=== PATIENT | male | born 2000 | race Caucasian/White ===

== ENCOUNTER 2024-11-17 19:18 | Emergency (ER) | payer BC, SELFPAY ==
--- NOTE | ~2024-11-17 | XR_ITS ---
XR ankle RT min 3V, XR foot RT min 3V 11/17/2024 19:37 INDICATION: Right ankle pain PROCEDURE: 4 views right ankle and 4 views right foot COMPARISON: No prior studies for comparison. FINDINGS: Fracture, dislocation or subluxation is not identified. The soft tissues appear within normal limits. No foreign bodies are identified. IMPRESSION: 1: NO ACUTE BONE OR JOINT ABNORMALITY IDENTIFIED. Reviewed, dictated and finalized at location O. IMPRESSION: 1: NO ACUTE BONE OR JOINT ABNORMALITY IDENTIFIED.
[2024-11-17 19:31] VITALS: BP 108/68; PULSE 69; RESP 16; TEMP 36.5; O2SAT 100
--- NOTE | 2024-11-17 19:42 | ED.GENADULT ---
HPI - General Adult General Chief complaint: Extremity Injury, Lower Stated complaint: INJURED R ANKLE/FOOT Source: patient Mode of arrival: ambulatory Limitations: no limitations History of Present Illness HPI narrative: Patient presents for evaluation of right foot and ankle pain. He initially injured his right foot 2 weeks ago while in [place]. His great toe got stuck in the sand and he felt a strain in the right foot. He has continued to have pain in the affected area. Last night he foot slipped on a diving board while swimming and he experienced pain in the anterior aspect of the right ankle. He rates his pain 7/10 in severity. He is not taking any medication for symptoms. Pain is worse with weight-bearing and walking. He denies any paresthesias. Related Data Home Medications ?Medication ?Instructions ?Recorded ?Confirmed ?Last Taken ?Type No Home Medications 11/17/24 11/17/24 Unknown History Allergies Allergy/AdvReac Type Severity Reaction Status Date / Time No Known Allergies Allergy Verified 11/17/24 19:29 Review of Systems Review of Systems: CONSTITUTIONAL: Denies fever, chills, or sweats. EYES: Denies visual changes, redness, or discharge. ENT: Denies rhinorrhea, congestion, sore throat, or otalgia. CARDIOVASCULAR: Denies chest pain, palpitations, or edema. RESPIRATORY: Denies cough or dyspnea. GASTROINTESTINAL: Denies abdominal pain, nausea, vomiting, or diarrhea. GENITOURINARY: Denies dysuria or hematuria. SKIN: Denies rash or itching. MUSCULOSKELETAL: reports right foot and ankle pain NEUROLOGIC: Denies headache, numbness, dizziness, or weakness. PSYCHIATRIC: Denies anxiety or depression. 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 HEAD: Normocephalic, atraumatic. EYES: PERRLA and EOMI. ENT: Nares clear, no rhinorrhea or epistaxis. Mucous membranes moist. Oropharynx without tonsillar hypertrophy exudate or other lesions. Bilateral TMs pearly eid nonbulging NECK: Supple. No adenopathy or masses. No carotid bruits or JVD CHEST: Clear to auscultation. No respiratory distress. No wheezes rales or rhonchi HEART: Regular rate and rhythm. No murmur heard. Normal peripheral pulses. ABDOMEN: Soft, nontender, nondistended, normal active bowel sounds. EXTREMITIES: dorsal aspect of the right foot is edematous. He is able to dorsi and plantar flex the right foot but does so with hesitancy secondary to pain. He is able to wiggle all digits of the right foot. There is tenderness just inferior to the lateral aspect of the right ankle SKIN: Warm, dry, no rash. NEURO: No focal deficits. Alert and oriented x3. PSYCH: Normal mood and affect. Course Course Emergency Course: This is a 24-year-old male who presented for evaluation of right ankle pain and right foot pain. X-rays were negative for fracture. Exam consistent with muscle strain and ankle sprain. Provided with William wrap. Advised on RICE therapy. NSAIDs for pain. Recommended he purchase and wear an ankle stirrup splint. Follow-up with primary provider. Go to the ER for worsening symptoms. Patient in agreement with of care. Level of Care: Express Care Visit Vital Signs Vital signs: Vital Signs Temperature 36.5 C 11/17/24 19:31 Pulse Rate 69 11/17/24 19:31 Respiratory Rate 16 11/17/24 19:31 Blood Pressure 108/68 11/17/24 19:31 Pulse Oximetry 100 11/17/24 19:31 Oxygen Delivery Room Air 11/17/24 19:31 Temperature 36.5 C 11/17/24 19:31 Pulse Rate 69 11/17/24 19:31 Respiratory Rate 16 11/17/24 19:31 Blood Pressure 108/68 11/17/24 19:31 Pulse Oximetry 100 11/17/24 19:31 Oxygen Delivery Room Air 11/17/24 19:31 Medical Decision Making Vital Signs Vital Signs: Vital Signs Temperature 36.5 C 11/17/24 19:31 Pulse Rate 69 11/17/24 19:31 Respiratory Rate 16 11/17/24 19:31 Blood Pressure 108/68 11/17/24 19:31 Pulse Oximetry 100 11/17/24 19:31 Oxygen Delivery Room Air 11/17/24 19:31 Temperature 36.5 C 11/17/24 19:31 Pulse Rate 69 11/17/24 19:31 Respiratory Rate 16 11/17/24 19:31 Blood Pressure 108/68 11/17/24 19:31 Pulse Oximetry 100 11/17/24 19:31 Oxygen Delivery Room Air 11/17/24 19:31 Imaging Data Radiologist's impression: XR ankle RT min 3V, XR foot RT min 3V 11/17/2024 19:37 INDICATION: Right ankle pain PROCEDURE: 4 views right ankle and 4 views right foot COMPARISON: No prior studies for comparison. FINDINGS: Fracture, dislocation or subluxation is not identified. The soft tissues appear within normal limits. No foreign bodies are identified. IMPRESSION: 1: NO ACUTE BONE OR JOINT ABNORMALITY IDENTIFIED. Discharge Plan Discharge Clinical Impression: Muscle strain of right foot, Right ankle sprain Patient Disposition: Home Condition: Stable Instructions: Antibiotic Form, Ankle Sprain (ED), Muscle Strain (DC) Additional Instructions: APPLICATION OF ICE SHOULD HELP IBUPROFEN SHOULD HELP WITH PAIN AND SWELLING KEEP YOUR LEG ELEVATED WHEN NOT MOVING A VELCRO ANKLE STIRRUP SPLINT SHOULD HELP Patient Language: Montserratian Prescriptions: No Action No Home Medications Follow-up/Referrals: Ray,Gera Philip M.D. [Primary Care Provider] Stand Alone Forms: Work/School Release IP Time of Disposition: 19:53
== END 2024-11-17 20:00 | disposition home or self-care (01) ==
PROVIDERS: Emergency Provider Nurse Practitioner; PCP Family Medicine
DX: S96.911A Strain of unspecified muscle and tendon at ankle and foot level, right foot, initial encounter (principal); S93.401A Sprain of unspecified ligament of right ankle, initial encounter; W01.0XXA Fall on same level from slipping, tripping and stumbling without subsequent striking against object, initial encounter
CPT/HCPCS: 73610; 73630; 99203; G0463